=== PATIENT | male | born 1970 | race Two or more races ===

== ENCOUNTER 2017-07-21 03:02 | Emergency (ER) | payer MEDICARE, MEDICAID ==
[2017-07-21 03:58] LABS: % BASOPHILS 0.2 % (0.0-2.0); % EOSINOPHILS 1.1 % (0.0-5.0); % LYMPHOCYTES 19.2 % (20.0-50.0); % MONOCYTES 9.1 % (2.0-10.0); % NEUTROPHILS 70.4 % (40.0-80.0); HEMATOCRIT 35.1 % (39.0-49.0); HEMOGLOBIN 11.5 gm/dL (13.2-17.3); MEAN CELL VOLUME 76.1 fl (80-99); MEAN CORPUSCULAR HEMOGLOBIN 24.9 pg (26.0-30.0); MEAN CORPUSCULAR HGB CONC 32.8 pg (28.0-36.0); MEAN PLATELET VOLUME 6.7 fl; PLATELET COUNT 405 Th/cmm (150-400); RED BLOOD COUNT 4.61 Mil/cmm (4.30-5.70); RED CELL DISTRIBUTION WIDTH 16.9 % (11.5-20.0); WHITE BLOOD COUNT 11.3 Th/cmm (4.8-10.8)
[2017-07-21 04:09] LABS: ALB/GLOB RATIO 1.5 (1.0-1.8); ALKALINE PHOSPHATASE 59 U/L (34-104); ANION GAP 8.5 (7.0-16.0); BILIRUBIN,TOTAL 0.3 mg/dL (0.3-1.0); BUN - UREA NITROGEN 15 mg/dL (7-25); BUN/CREATININE RATIO 21.4; CALCIUM SERUM 9.2 mg/dL (8.6-10.3); CARBON DIOXIDE 26.1 mEq/L (21.0-31.0); CHLORIDE 104 mEq/L (98-107); CREATININE - SERUM 0.7 mg/dL (0.7-1.3); GLUCOSE 100 mg/dL (70-105); POTASSIUM SERUM 3.6 mEq/L (3.5-5.1); SGOT 20 U/L (13-39); SGPT/ALT 21 U/L (7-52); SODIUM SERUM 135 mEq/L (136-145)
[2017-07-21 04:10] LABS: LIPASE 18 U/L (11-82)
[2017-07-21 04:15] LABS: AMPHETAMINE URINE POSITIVE (NEGATIVE); BARBITURATES URINE NEGATIVE (NEGATIVE); METHADONE URINE NEGATIVE (NEGATIVE)
--- NOTE | 2017-07-21 06:04 | ED Physician Chart ---
Chief Complaint/HPI - Patient Information Date Seen:: 07/21/17 Time Seen:: 03:30 Chief Complaint:: abdominal pain History of Present Illness:: THIS IS A 47 YO MALE WHO WAS BIB EMS WITH A COMPLAINT OF ABDOMINAL PAIN AND WAS UNCOOPERATIVE AT TIMES. HE DENIES FEVER, HYPERTENSION AND HEART DISEASE. THE PATIENT DENIED NAUSEA AND VOMITING DEMANDING FOOD. THE PATIENT STATED THAT HE DRINK A WHOLE BOTTLE OF WHISKEY Allergies:: Allergies Allergy/AdvReac Type Severity Reaction Status Date / Time zolpidem [From Ambien] Allergy Verified 07/21/17 03:29 Vitals:: Vital Signs - 8 hr 07/21/17 03:10 Temp 98.6 F HR 102 RR 20 BP 127/82 O2 Sat % 98 Historian:: Patient, EMS Review:: Nurse's Note Reviewed Review of Systems - Review of Systems General/Constitutional: No fever, No chills, No weight loss, No weakness, No diaphoresis, No edema, No loss of appetite, Other (THIS PATIENT IS UNCOOPERATIVE AND THE REVIEW OF SYSTEM IS NOT RELIABLE.) Skin: No skin lesions, No rash, No bruising Head: No headache, No light-headedness Eyes: No loss of vision, No pain, No diplopia ENT: No earache, No nasal drainage, No sore throat, No tinnitus Neck: No neck pain, No swelling, No thyromegaly, No stiffness, No mass noted Cardio Vascular: No chest pain, No palpitations, No PND, No orthopnea, No edema Pulmonary: No SOB, No cough, No sputum, No wheezing GI: No nausea, No vomiting, No diarrhea, No pain, No melena, No hematochezia, No constipation, No hematemesis G/U: No dysuria, No frequency, No hematuria Musculoskeletal: No bone or joint pain, No back pain, No muscle pain Endocrine: No polyuria, No polydipsia Psychiatric: No prior psych history, No depression, No anxiety, No suicidal ideation Hematopoietic: No bruising, No lymphadenopathy Allergic/Immuno: No urticaria, No angioedema Neurological: No syncope, No focal symptoms, No weakness, No paresthesia, No headache, No seizure, No dizziness, No confusion, No vertigo Past Medical History - Past Medical History Obtainable: Yes (THE HISTORY IS NOT RELIABLE) Social History: Smoker, Alcohol, Illicit Drug Use Psychiatricy History: Other (UNKNOWN) Family Medical History - Family Member Mother History Unknown: Yes Physical Exam - Physical Examination General/Constitutional: Awake, Well-developed, well-nourished, Alert, No distress, GCS 15, Non-toxic appearing, Ambulatory Other Gen/Cons comments:: THIS PATIENT WAS UNCOOPERATIVE AND WAS RESTLESS. THIS PATIENT APPEARED TO BE UNDER THE INFLUENCE OF SOMETHING. Head: Atraumatic Eyes: Lids, conjuctiva normal, PERRL, EOMI Skin: Nl inspection, No rash, No skin lesions, No ecchymosis, Well hydrated, No lymphadenopathy ENMT: External ears, nose nl, Nasal exam nl, Lips, teeth, gums nl Neck: Nontender, Full ROM w/o pain, No JVD, No nuchal rigidity, No bruit, No mass, No stridor Respiratory: Nl effort/Exclusion, Clear to Auscultation, No Wheeze/Rhonchi/Rales Cardio Vascular: RRR, No murmur, gallop, rubs, NL S1 S2 GI: No tenderness/rebounding/guarding, No organomegaly, No hernia, Normal BS's, Nondistended, No mass/bruits, No McBurney tenderness : No CVA tenderness Extremities: No tenderness or effusion, Full ROM, normal strength in all extremities, No edema, Normal digits & nails Neuro/Psych: Alert/oriented, DTR's symmetric, Normal sensory exam, Normal motor strength, Judgement/insight normal, Mood normal, Normal gait, No focal deficits Misc: normal gait, Normal back, No paraspinal tenderness Labs/Radiology/EKG Results - Lab Results Results: Laboratory Tests 07/21/17 07/21/17 07/21/17 03:30 03:47 03:47 WBC 11.3 H RBC 4.61 Hgb 11.5 L Hct 35.1 L MCV 76.1 L MCH 24.9 L MCHC Differential 32.8 RDW 16.9 Plt Count 405 H MPV 6.7 Neutrophils % 70.4 Lymphocytes % 19.2 L Monocytes % 9.1 Eosinophils % 1.1 Basophils % 0.2 Sodium 135 L Potassium 3.6 Chloride 104 Carbon Dioxide 26.1 Anion Gap 8.5 BUN 15 Creatinine 0.7 Est GFR ( Amer) > 60.0 Est GFR (Non-Af Amer) > 60.0 BUN/Creatinine Ratio 21.4 Glucose 100 Calcium 9.2 Total Bilirubin 0.3 AST 20 ALT 21 Alkaline Phosphatase 59 Troponin I Total Protein 6.9 Albumin 4.1 L Globulin 2.8 Albumin/Globulin Ratio 1.5 Lipase Urine Opiates Screen NEGATIVE Urine Methadone Screen NEGATIVE Ur Barbiturates Screen NEGATIVE Ur Tricyclics Screen NEGATIVE Ur Phencyclidine Scrn NEGATIVE Amphetamines Screen POSITIVE H U Methamphetamines Scrn POSITIVE H U Benzodiazepines Scrn POSITIVE H U Cocaine Metab Screen NEGATIVE U Cannabinoids Screen POSITIVE H Ethyl Alcohol 07/21/17 07/21/17 03:47 03:47 WBC RBC Hgb Hct MCV MCH MCHC Differential RDW Plt Count MPV Neutrophils % Lymphocytes % Monocytes % Eosinophils % Basophils % Sodium Potassium Chloride Carbon Dioxide Anion Gap BUN Creatinine Est GFR ( Amer) Est GFR (Non-Af Amer) BUN/Creatinine Ratio Glucose Calcium Total Bilirubin AST ALT Alkaline Phosphatase Troponin I 0.01 Total Protein Albumin Globulin Albumin/Globulin Ratio Lipase 18 Urine Opiates Screen Urine Methadone Screen Ur Barbiturates Screen Ur Tricyclics Screen Ur Phencyclidine Scrn Amphetamines Screen U Methamphetamines Scrn U Benzodiazepines Scrn U Cocaine Metab Screen U Cannabinoids Screen Ethyl Alcohol < 10 Assessment - Assessment General Assessment: DRUG ABUSER ED Septic Shock - . Is Septic Shock (SBP<90, OR Lactate>4 mmol\L) present?: No - <6hrs of presentation: Vital Signs: Vital Signs - 8 hr 07/21/17 03:10 Temp 98.6 F HR 102 RR 20 BP 127/82 O2 Sat % 98 Reassessment (Disposition) - Diagnosis Diagnosis:: DRUG ABUSE - Patient Disposition Discharge/Transfer:: Elope/AWOL (THE PATIENT WENT OUT FOR A SMOKE AND NEVER CAME BACK.) ED Discharge Plan - Patient Disposition Admit/Discharge/Transfer: PATIENT ELOPED Condition at Disposition: Unchanged
== END 2017-07-21 06:05 | disposition left against medical advice (07) ==
LOC: ER 03:02
DX: F10.10 Alcohol abuse, uncomplicated (principal); F17.200 Nicotine dependence, unspecified, uncomplicated; Z88.8 Allergy status to other drugs, medicaments and biological substances
CPT/HCPCS: 99284; 96372; 84484; 36415; 80307; 85025; 80320; 83690; 80053; J2060; Z7502